=== PATIENT | female | born 1990 | race Caucasian/White ===

== ENCOUNTER 2020-03-23 16:45 | Emergency (ER) | payer OTHER ==
[~2020-03-23 16:45] MED LIST: ASPIRIN CHEWABL81 MG PO; BUTALB-ACETAMI1 EACH PO; COLACE 100MG C100 MG PO; FERROUS SULFAT325 M2 PO; NORCO 5-325 TA1 EACH PO; NORFLEX 100 MG100 MG PO; PERCOCET 5-3251 EACH PO; ULTRAM50 MG PO; ZOFRAN4 MG PO
[2020-03-23 18:02] LABS: HEMOGLOBIN 10.9 gm/dl (12.3-15.3)
[2020-03-24] MEDS ORDERED: MACROBID 100 M100 MG PO (03:31)
[2020-03-24] MEDS ORDERED: ZOFRAN ODT 4 MG4 MG SL (03:31)
== END 2020-03-23 20:26 | disposition home or self-care (01) ==
LOC: ER1 16:45
PROVIDERS: Physician Assistant
DX: N93.8 Other specified abnormal uterine and vaginal bleeding (principal); R10.2 Pelvic and perineal pain; F17.200 Nicotine dependence, unspecified, uncomplicated; Z90.49 Acquired absence of other specified parts of digestive tract; Z87.42 Personal history of other diseases of the female genital tract; Z53.20 Procedure and treatment not carried out because of patient's decision for unspecified reasons
CPT/HCPCS: 84703; 85014; 85018

== ENCOUNTER 2020-03-23 23:16 | Emergency (ER) | payer OTHER ==
[2020-03-24 01:05] LABS: HEMOGLOBIN 10.7 gm/dl (12.3-15.3); RED BLOOD COUNT 3.67 M/UL (4.00-5.10); WHITE BLOOD COUNT 8.4 K/UL (4.5-11.0)
[2020-03-24] MEDS ORDERED: MACROBID 100 M100 MG PO (03:31)
[2020-03-24] MEDS ORDERED: ZOFRAN ODT 4 MG4 MG SL (03:31)
[2020-03-24 03:41] LABS: BUN/CREATININE RATIO 14 (0-10)
== END 2020-03-24 03:57 | disposition home or self-care (01) ==
LOC: ER1 23:16
PROVIDERS: Physician Assistant
DX: N39.0 Urinary tract infection, site not specified (principal); R10.10 Upper abdominal pain, unspecified; F17.200 Nicotine dependence, unspecified, uncomplicated; Z90.49 Acquired absence of other specified parts of digestive tract; Z88.2 Allergy status to sulfonamides; Z88.1 Allergy status to other antibiotic agents; Z88.6 Allergy status to analgesic agent
CPT/HCPCS: 80053; 81001; 84703; 85014; 85018; 85025; 96374; 99284; J2405; Q9967

== ENCOUNTER → 2020-05-21 | Outpatient (CLI) | payer OTHER ==
[~2020-05-21] MED LIST changes: +MACROBID 100 M100 MG PO; +ZOFRAN ODT 4 MG4 MG SL
== END ==
LOC: KOH-I 15:02
DX: B07.0 Plantar wart (principal)
CPT/HCPCS: 73630

== ENCOUNTER → 2020-07-28 | Outpatient (CLI) | payer OTHER | LOC: KOH-I 15:10 | DX: M54.2 Cervicalgia (principal) | CPT/HCPCS: 72040 ==

== ENCOUNTER 2020-09-21 14:19 | Emergency (ER) | payer OTHER ==
[2020-09-21 16:14] LABS: HEMOGLOBIN 12.1 gm/dl (12.3-15.3); RED BLOOD COUNT 4.42 M/UL (4.00-5.10); WHITE BLOOD COUNT 6.3 K/UL (4.5-11.0)
[2020-09-21 16:34] LABS: BUN/CREATININE RATIO 11 (0-10)
== END 2020-09-21 18:00 | disposition home or self-care (01) ==
LOC: ER1 14:19
PROVIDERS: Physician Assistant
DX: R10.31 Right lower quadrant pain (principal); R10.32 Left lower quadrant pain; Z90.49 Acquired absence of other specified parts of digestive tract; Z88.1 Allergy status to other antibiotic agents; F17.200 Nicotine dependence, unspecified, uncomplicated
CPT/HCPCS: 80053; 81001; 82272; 84703; 85025; 99284; Q9967

== ENCOUNTER → 2021-01-27 | Outpatient (CLI) | payer OTHER ==
[~2021-01-27] MED LIST changes: +PROZAC20 MG PO
[2021-01-27 12:36] LABS: HEMOGLOBIN 12.8 gm/dl (12.3-15.3); RED BLOOD COUNT 4.36 M/UL (4.00-5.10); WHITE BLOOD COUNT 7.8 K/UL (4.5-11.0)
[2021-01-27 13:45] LABS: BUN/CREATININE RATIO 16 (0-10)
== END ==
LOC: OPSV2 11:15
PROVIDERS: Podiatrist Foot & Ankle Surgery
DX: Z01.812 Encounter for preprocedural laboratory examination (principal); Q82.8 Other specified congenital malformations of skin
CPT/HCPCS: 36415; 80048; 85027

== ENCOUNTER → 2021-04-02 | Day surgery (SDC) | payer OTHER ==
[~2021-04-02] VITALS: Ht 157.5 cm; Wt 99.8 kg
[~2021-04-02] MED LIST changes: +HYDROCODON-ACE1 EAC4 PO
[2021-04-02 06:28] LABS: RED BLOOD COUNT 4.49 M/UL (4.00-5.10); WHITE BLOOD COUNT 11.4 K/UL (4.5-11.0)
[2021-04-02 06:50] LABS: BUN/CREATININE RATIO 18 (0-10)
== END | disposition home or self-care (01) ==
LOC: OR 02-05 07:30
PROVIDERS: Podiatrist Foot & Ankle Surgery
DX: B07.0 Plantar wart (principal); L57.0 Actinic keratosis; R23.4 Changes in skin texture; Z90.49 Acquired absence of other specified parts of digestive tract; Z20.822 Contact with and (suspected) exposure to COVID-19
CPT/HCPCS: 80048; 84703; 85027; J0690; J1100; J1170; J2250; J2405; J2704; J2795; J3010; J3370; J7120

== ENCOUNTER 2021-05-11 19:08 | Emergency (ER) | payer OTHER ==
[2021-05-11] MEDS ORDERED: ONDANSETRON ODT4 MG SL (21:47)
== END 2021-05-11 21:52 | disposition home or self-care (01) ==
LOC: ER1 19:08
DX: S09.90XA Unspecified injury of head, initial encounter (principal); S16.1XXA Strain of muscle, fascia and tendon at neck level, initial encounter; S20.211A Contusion of right front wall of thorax, initial encounter; S50.01XA Contusion of right elbow, initial encounter; F17.200 Nicotine dependence, unspecified, uncomplicated; W01.10XA Fall on same level from slipping, tripping and stumbling with subsequent striking against unspecified object, initial encounter; Y92.009 Unspecified place in unspecified non-institutional (private) residence as the place of occurrence of the external cause
CPT/HCPCS: 70450; 71111; 72100; 72125; 99284

== ENCOUNTER → 2021-07-06 | Outpatient (CLI) | payer OTHER ==
[~2021-07-06] MED LIST changes: +ONDANSETRON ODT4 MG SL
== END ==
LOC: KOH-I 16:00
DX: M54.9 Dorsalgia, unspecified (principal); N20.0 Calculus of kidney
CPT/HCPCS: 74176

== ENCOUNTER 2021-08-03 04:36 | Emergency (ER) | payer OTHER ==
[2021-08-03 05:01] LABS: HEMOGLOBIN 13.4 gm/dl (12.3-15.3); RED BLOOD COUNT 4.64 M/UL (4.00-5.10); WHITE BLOOD COUNT 11.4 K/UL (4.5-11.0)
[2021-08-03 05:21] LABS: BUN/CREATININE RATIO 14 (0-10)
[2021-08-03] MEDS ORDERED: CEPHALEXIN500 M1 PO (11:35)
[2021-08-03] MEDS ORDERED: BENTYL 20MG TAB20 MG PO (11:35)
[2021-08-03] MEDS ORDERED: ONDANSETRON ODT4 MG SL (11:35)
== END 2021-08-03 12:42 | disposition home or self-care (01) ==
LOC: ER1 04:36
PROVIDERS: Family Medicine
DX: N39.0 Urinary tract infection, site not specified (principal); R19.7 Diarrhea, unspecified; F17.200 Nicotine dependence, unspecified, uncomplicated; Z87.442 Personal history of urinary calculi; Z88.2 Allergy status to sulfonamides; Z88.6 Allergy status to analgesic agent; Z88.1 Allergy status to other antibiotic agents
CPT/HCPCS: 80053; 81001; 83690; 84703; 85025; 87086; 96374; 96375; 99284; J2270; J2405; Q9967

== ENCOUNTER 2021-08-12 17:36 | Emergency (ER) | payer OTHER | END 2021-08-12 20:20 | disposition home or self-care (01) | LOC: ER1 17:36 | DX: S63.502A Unspecified sprain of left wrist, initial encounter (principal); F17.210 Nicotine dependence, cigarettes, uncomplicated; W19.XXXA Unspecified fall, initial encounter; Y92.009 Unspecified place in unspecified non-institutional (private) residence as the place of occurrence of the external cause | CPT/HCPCS: 73030; 73060; 73090; 73110; 99283 ==

== ENCOUNTER → 2021-08-12 | Day surgery (SDC) | payer OTHER ==
[~2021-08-12] MED LIST changes: +ACID REDUCER20 MG PO; +AMOXICILLIN500 MG PO; +BENTYL 20MG TAB20 MG PO; +CEPHALEXIN500 M1 PO
== END | disposition home or self-care (01) ==
LOC: OR 07:01
DX: K21.00 Gastro-esophageal reflux disease with esophagitis, without bleeding (principal); K29.50 Unspecified chronic gastritis without bleeding; F17.210 Nicotine dependence, cigarettes, uncomplicated; Z88.1 Allergy status to other antibiotic agents; Z88.2 Allergy status to sulfonamides; Z88.6 Allergy status to analgesic agent; Z91.010 Allergy to peanuts
CPT/HCPCS: 84703; J2704; J7040

== ENCOUNTER 2021-08-23 19:05 | Emergency (ER) | payer OTHER ==
[2021-08-23 19:49] LABS: HEMOGLOBIN 13.2 gm/dl (12.3-15.3); RED BLOOD COUNT 4.5 M/UL (4.00-5.10); WHITE BLOOD COUNT 14.1 K/UL (4.5-11.0)
[2021-08-23 20:13] LABS: BUN/CREATININE RATIO 12 (0-10)
[2021-08-24] MEDS ORDERED: HYDROCODON-ACE1 EAC4 PO (01:53)
== END 2021-08-24 01:50 | disposition home or self-care (01) ==
LOC: ER1 19:05
PROVIDERS: Physician Assistant
DX: N83.201 Unspecified ovarian cyst, right side (principal); F17.210 Nicotine dependence, cigarettes, uncomplicated; Z88.6 Allergy status to analgesic agent
CPT/HCPCS: 80053; 81001; 82150; 83690; 84703; 85025; 96374; 99284; J2405; Q9967

== ENCOUNTER → 2021-09-01 | Day surgery (SDC) | payer OTHER ==
[~2021-09-01] MED LIST changes: +HYDROCODONE-AC1 EACH PO; +IBUPROFEN600 MG PO; +ZOFRAN 4 MG TAB4 MG PO
[2021-09-01 06:46] LABS: HEMOGLOBIN 12.9 gm/dl (12.3-15.3); RED BLOOD COUNT 4.43 M/UL (4.00-5.10); WHITE BLOOD COUNT 9.3 K/UL (4.5-11.0)
== END | disposition home or self-care (01) ==
LOC: OR 06:07
PROVIDERS: Obstetrics & Gynecology
DX: N83.201 Unspecified ovarian cyst, right side (principal); N83.202 Unspecified ovarian cyst, left side; K66.0 Peritoneal adhesions (postprocedural) (postinfection); K21.9 Gastro-esophageal reflux disease without esophagitis; F17.210 Nicotine dependence, cigarettes, uncomplicated; Z88.1 Allergy status to other antibiotic agents; Z88.2 Allergy status to sulfonamides; Z88.6 Allergy status to analgesic agent; Z91.010 Allergy to peanuts; Z79.899 Other long term (current) drug therapy
CPT/HCPCS: 81001; 84703; 85025; C1769; J0690; J1100; J1170; J2001; J2250; J2405; J2704; J2710; J3010

== ENCOUNTER 2021-09-16 14:15 | Emergency (ER) | payer OTHER ==
[2021-09-16 15:04] LABS: HEMOGLOBIN 13.5 gm/dl (12.3-15.3); RED BLOOD COUNT 4.59 M/UL (4.00-5.10); WHITE BLOOD COUNT 6.4 K/UL (4.5-11.0)
[2021-09-16 15:52] LABS: BUN/CREATININE RATIO 11 (0-10)
[2021-09-16] MEDS ORDERED: ATIVAN0.5 MG PO (18:46)
== END 2021-09-16 19:00 | disposition home or self-care (01) ==
LOC: ER1 14:15
PROVIDERS: Emergency Medicine
DX: R10.9 Unspecified abdominal pain (principal); R10.811 Right upper quadrant abdominal tenderness; R10.813 Right lower quadrant abdominal tenderness; F17.200 Nicotine dependence, unspecified, uncomplicated; Z88.1 Allergy status to other antibiotic agents; Z88.6 Allergy status to analgesic agent
CPT/HCPCS: 80053; 81001; 83605; 83690; 84703; 85025; 86140; 99284; J0780; J1170; J2060; Q9967

== ENCOUNTER 2021-09-22 19:17 | Emergency (ER) | payer OTHER ==
[~2021-09-22 19:17] MED LIST changes: +ATIVAN0.5 MG PO
[2021-09-22 20:08] LABS: HEMOGLOBIN 13.5 gm/dl (12.3-15.3); RED BLOOD COUNT 4.6 M/UL (4.00-5.10); WHITE BLOOD COUNT 9.7 K/UL (4.5-11.0)
[2021-09-22 20:49] LABS: BUN/CREATININE RATIO 12 (0-10)
== END 2021-09-22 21:18 | disposition left against medical advice (07) ==
LOC: ER1 19:17
PROVIDERS: Physician Assistant Medical
DX: R07.89 Other chest pain (principal); F17.210 Nicotine dependence, cigarettes, uncomplicated; Z88.6 Allergy status to analgesic agent; Z88.0 Allergy status to penicillin; Z88.1 Allergy status to other antibiotic agents
CPT/HCPCS: 71045; 80053; 81001; 82550; 82553; 84484; 84703; 85025; 85379; 93005; 99283

== ENCOUNTER → 2021-10-14 | Outpatient (CLI) | payer OTHER | LOC: KOH-I 12:52 | DX: M54.2 Cervicalgia (principal); M25.512 Pain in left shoulder; R11.2 Nausea with vomiting, unspecified; R14.3 Flatulence | CPT/HCPCS: 72040; 73030; 74018 ==

== ENCOUNTER → 2021-12-01 | Outpatient (CLI) | payer OTHER ==
[~2021-12-01] MED LIST changes: +CYANOCOBAL1000 MCG/1 INJ; +DOCUSATE SODIU250 MG PO; +VITAMIN D21250 MCG PO
[2021-12-01 11:27] LABS: HEMOGLOBIN 12.9 gm/dl (12.3-15.3); RED BLOOD COUNT 4.4 M/UL (4.00-5.10); WHITE BLOOD COUNT 9.8 K/UL (4.5-11.0)
== END ==
LOC: OPSV2 10:00
PROVIDERS: Obstetrics & Gynecology
DX: Z01.818 Encounter for other preprocedural examination (principal); R10.2 Pelvic and perineal pain
CPT/HCPCS: 81001; 85025; 93005

== ENCOUNTER → 2021-12-08 | Day surgery (SDC) | payer OTHER ==
[~2021-12-08] VITALS: Ht 157.5 cm; Wt 96.2 kg
== END | disposition home or self-care (01) ==
LOC: OR 07:10
DX: N93.9 Abnormal uterine and vaginal bleeding, unspecified (principal); K21.9 Gastro-esophageal reflux disease without esophagitis; E66.01 Morbid (severe) obesity due to excess calories; F17.210 Nicotine dependence, cigarettes, uncomplicated; Z88.1 Allergy status to other antibiotic agents; Z88.2 Allergy status to sulfonamides
CPT/HCPCS: 84703; C1769; J0690; J1100; J1170; J2001; J2250; J2405; J2550; J2704; J3010